=== PATIENT | female | born 2000 ===

== ENCOUNTER 2021-05-29 23:45 | Inpatient (IN) | payer MEDICAID, OTHER ==
[2021-05-30] MEDS ORDERED: TERBUTALINE 1 MG/1 ML INJ SUB-Q PRN (01:16)
[2021-05-30] MEDS ORDERED: LOPERAMIDE 2 MG CAP PO PRN (01:16)
[2021-05-30] MEDS ORDERED: METHYLERGONOVINE MALEATE 0.2 MG/ML VIAL IM PRN (01:16)
[2021-05-30] MEDS ORDERED: OXYTOCIN 10 UNIT/1 ML INJ IM PRN (01:16)
[2021-05-30] MEDS ORDERED: CARBOPROST TROMETHAMINE 250 MCG/1 ML INJ IM PRN (01:16)
[2021-05-30] MEDS ORDERED: ONDANSETRON 4 MG/2 ML INJ IV PRN (01:16)
[2021-05-30] MEDS ORDERED: miSOPROStol 200 MCG TAB PR PRN (01:16)
[2021-05-30] MEDS ORDERED: ePHEDrine SULFATE 50 MG/1 ML INJ IV PRN (01:16)
[2021-05-30] MEDS ORDERED: LIDOCAINE (2%) 20 MG/1 ML VIAL 20 ML MDV INFILTRATI ONE (01:16)
[2021-05-30] MEDS ORDERED: MINERAL OIL 30 ML ORAL LIQD PO PRN (01:16)
[2021-05-30] MEDS ORDERED: OXYTOCIN DRIP 30 UNITS/500 ML BAG IV SCH (02:00)
[2021-05-30 02:16] LABS: Hematocrit 38.1 % (30.3-42.9); Hemoglobin 12.9 gm/dl (10.1-14.3); Mean Corpuscular HGB Conc 34 % (30-34); Mean Corpuscular Volume 82 fl (79-97); Platelet Count 246 K/mm3 (140-440); Red Blood Count 4.63 M/mm3 (3.65-5.03); Red Cell Distribution Width 15.7 % (13.2-15.2)
[2021-05-30] MEDS: LACTATED RINGERS 1,000 ML IV SCH ×2 (03:22→11:30)
[2021-05-30] MEDS: OXYTOCIN DRIP 30 UNITS/500 ML BAG IV SCH (03:23)
--- NOTE | 2021-05-30 06:43 | History and Physical Report ---
History of Present Illness Date of examination: 05/30/21 Date of admission: 05/30/21 01:16 Chief complaint: rupture of membranes History of present illness: 20 yo G1 at 38w0d VIKTOR 06/13/21 with PNC at [facility] c/b hx abnormal AFP with pos DS screen 1:91 with neg CFDNA, abnormal 1hr GTT, nl 3h GTT presenting with leakage of fluid, found to have positive amnisure. Intermittent contractions. +FM. No VB. No PIH symptoms. PNC reviewed, WNL unless otherwise specified O pos H/H 39.9/13.2 Pap NILM Rubella immune, VDRL neg HIV neg SMA/fragile X /CF neg GCCT neg MSAPF pos down syndrome, CFDNA neg 1hr GTT 143, 3hr GTT passed GBS neg Past History Past Medical History: no pertinent history Past Surgical History: no surgical history Family/Genetic History: none Social history: no significant social history - Obstetrical History Expected Date of Delivery: 06/13/21 Actual Gestation: 38 Week(s) 0 Day(s) : 1 Medications and Allergies Allergies Allergy/AdvReac Type Severity Reaction Status Date / Time Penicillins Allergy Rash Verified 05/30/21 06:49 Active Meds: Active Medications Butorphanol Tartrate (Butorphanol 2 Mg/1 Ml Inj) 2 mg IV Q2H PRN PRN Reason: Pain , Severe (7-10) Carboprost Tromethamine (Carboprost Tromethamine 250 Mcg/1 Ml Inj) 250 mcg IM ONCE PRN PRN Reason: Uterine Bleeding Ephedrine Sulfate (Ephedrine Sulfate 50 Mg/1 Ml Inj) 10 mg IV Q2M PRN PRN Reason: Hypotension Oxytocin/Sodium Chloride (Pitocin/Ns 30 Unit/500ml) 30 units in 500 mls @ 2 mls/hr IV TITR JAE; Protocol Last Titration: 05/30/21 04:31 Dose: 3 ml/hr, 3 mls/hr Documented by: Lactated Ringer's (Lactated Ringers) 1,000 mls @ 125 mls/hr IV DIRECT JAE Last Admin: 05/30/21 03:22 Dose: 125 mls/hr Documented by: Oxytocin/Sodium Chloride (Pitocin/Ns 30 Unit/500ml) 30 units in 500 mls @ 40 mls/hr IV TITR JAE; Protocol Loperamide HCl (Loperamide 2 Mg Cap) 2 mg PO ONCE PRN PRN Reason: give with Hemabate Methylergonovine Maleate (Methylergonovine Maleate 0.2 Mg/Ml Vial) 0.2 mg IM ONCE PRN PRN Reason: Uterine Bleeding Mineral Oil (Mineral Oil 30 Ml Oral Liqd) 30 ml PO QHS PRN PRN Reason: Constipation Misoprostol (Misoprostol 200 Mcg Tab) 800 mcg MT ONCE PRN PRN Reason: Uterine Bleeding Ondansetron HCl (Ondansetron 4 Mg/2 Ml Inj) 4 mg IV Q8H PRN PRN Reason: Nausea And Vomiting Oxytocin (Oxytocin 10 Unit/1 Ml Inj) 10 unit IM ONCE PRN PRN Reason: Uterine Bleeding Terbutaline Sulfate (Terbutaline 1 Mg/1 Ml Inj) 0.25 mg SUB-Q ONCE PRN PRN Reason: Hyperstimulation/Hypertonicity Review of Systems All systems: negative (expect HPI) - Vital Signs Vital signs: Vital Signs Pulse BP 83 133/63 05/30/21 00:06 05/30/21 00:06 Temp Pulse Resp BP Pulse Ox 98.5 F 83 20 131/66 100 05/30/21 00:12 05/30/21 02:13 05/30/21 00:12 05/30/21 02:13 05/30/21 01:42 - Physical Exam Abdomen: Positive: normal appearance, normal bowel sounds Uterus: Positive: enlarged - Obstetrical FHR: category 1 Uterine Contraction Monitor Mode: External Cervical Dilatation: 0.5 Cervical Effacement Percentage: 30 station: -4 Uterine Contraction Pattern: Irregular Results Result Diagrams: 05/30/21 01:55 Abnormal lab results 05/30/21 05/30/21 Range/Units 00:37 01:55 WBC 11.5 H (4.5-11.0) K/mm3 RDW 15.7 H (13.2-15.2) % Membranes Rupture Positive A (Negative) All other labs normal. Assessment and Plan - Patient Problems (1) PROM (premature rupture of membranes) Current Visit: Yes Status: Acute Plan to address problem: For IOL for PROM at term --Pitocin for induction of labor --GBS neg --Epidural available, Stadol prn pain --Anticipate
--- NOTE | 2021-05-30 10:30 | Progress Note ---
Assessment and Plan A: IUP@38 wks PPROM P: Continuous monitoring Start Cervidil Pain med/Epidural prn Anticipate Subjective - Subjective Date of service: 05/30/21 Principal diagnosis: IUP@ 38wks Patient reports: loss of fluid, movement normal, contractions Objective - Vital Signs Vital Signs: Vital Signs - 12hr 05/30/21 05/30/21 05/30/21 00:06 00:07 00:12 Temperature 98.5 F Pulse Rate 83 83 83 Respiratory 20 Rate Blood Pressure 133/63 Blood Pressure 124/66 [Left] O2 Sat by Pulse 99 98 Oximetry 05/30/21 05/30/21 05/30/21 00:13 00:17 00:22 Temperature Pulse Rate 77 87 75 Respiratory Rate Blood Pressure 124/66 Blood Pressure [Left] O2 Sat by Pulse 97 98 Oximetry 05/30/21 05/30/21 05/30/21 00:27 00:32 00:37 Temperature Pulse Rate 86 86 78 Respiratory Rate Blood Pressure Blood Pressure [Left] O2 Sat by Pulse 99 100 100 Oximetry 05/30/21 05/30/21 05/30/21 00:42 00:47 00:52 Temperature Pulse Rate 81 73 79 Respiratory Rate Blood Pressure Blood Pressure [Left] O2 Sat by Pulse 99 100 99 Oximetry 05/30/21 05/30/21 05/30/21 00:57 01:02 01:07 Temperature Pulse Rate 78 82 83 Respiratory Rate Blood Pressure Blood Pressure [Left] O2 Sat by Pulse 98 99 98 Oximetry 05/30/21 05/30/21 05/30/21 01:12 01:17 01:22 Temperature Pulse Rate 87 79 87 Respiratory Rate Blood Pressure Blood Pressure [Left] O2 Sat by Pulse 99 99 100 Oximetry 05/30/21 05/30/21 05/30/21 01:27 01:32 01:37 Temperature Pulse Rate 85 86 87 Respiratory Rate Blood Pressure Blood Pressure [Left] O2 Sat by Pulse 99 100 100 Oximetry 05/30/21 05/30/21 05/30/21 01:42 02:13 06:48 Temperature Pulse Rate 93 H 83 79 Respiratory Rate Blood Pressure 131/66 100/78 Blood Pressure [Left] O2 Sat by Pulse 100 98 Oximetry 05/30/21 05/30/21 05/30/21 06:53 06:58 07:02 Temperature Pulse Rate 78 86 79 Respiratory Rate Blood Pressure Blood Pressure [Left] O2 Sat by Pulse 96 98 93 Oximetry 05/30/21 05/30/21 05/30/21 07:03 07:08 07:13 Temperature Pulse Rate 81 87 81 Respiratory Rate Blood Pressure Blood Pressure [Left] O2 Sat by Pulse 95 98 96 Oximetry 05/30/21 05/30/21 05/30/21 07:14 07:18 07:21 Temperature 98.3 F Pulse Rate 91 H 85 90 Respiratory Rate Blood Pressure Blood Pressure [Left] O2 Sat by Pulse 92 96 92 Oximetry 05/30/21 05/30/21 05/30/21 07:23 07:28 07:33 Temperature Pulse Rate 74 94 H 72 Respiratory Rate Blood Pressure Blood Pressure [Left] O2 Sat by Pulse 99 98 97 Oximetry 05/30/21 05/30/21 05/30/21 07:38 07:43 07:48 Temperature Pulse Rate 82 90 84 Respiratory Rate Blood Pressure Blood Pressure [Left] O2 Sat by Pulse 100 98 97 Oximetry 05/30/21 05/30/21 05/30/21 07:53 07:58 08:03 Temperature Pulse Rate 83 75 80 Respiratory Rate Blood Pressure Blood Pressure [Left] O2 Sat by Pulse 98 98 97 Oximetry 05/30/21 05/30/21 05/30/21 08:08 08:13 08:18 Temperature Pulse Rate 78 78 70 Respiratory Rate Blood Pressure Blood Pressure [Left] O2 Sat by Pulse 98 97 98 Oximetry 05/30/21 05/30/21 05/30/21 08:20 08:23 08:27 Temperature Pulse Rate 81 70 77 Respiratory Rate Blood Pressure Blood Pressure [Left] O2 Sat by Pulse 92 99 91 Oximetry 05/30/21 05/30/21 05/30/21 08:28 08:33 09:11 Temperature Pulse Rate 69 75 85 Respiratory Rate Blood Pressure 105/56 Blood Pressure [Left] O2 Sat by Pulse 98 99 Oximetry 05/30/21 05/30/21 09:40 10:10 Temperature Pulse Rate 68 75 Respiratory Rate Blood Pressure 98/59 113/64 Blood Pressure [Left] O2 Sat by Pulse Oximetry - Exam Breasts: normal Abdomen: Present: normal appearance, soft, normal bowel sounds, other (gravid) Vulva: both: normal Uterus: Present: normal FHR: auscultation normal, category 1 Uterine Contraction Monitor Mode: External Cervical Dilatation: 1 Cervical Effacement Percentage: 50 station: -4 Uterine Contraction Pattern: Irregular Uterine Tone Measurement Phase: Resting Uterine Contraction Intensity: Mild Extremities: normal - Labs Labs: Abnormal Labs 05/30/21 05/30/21 00:37 01:55 WBC 11.5 H RDW 15.7 H Membranes Rupture Positive A Laboratory Results - last 24 hr 05/30/21 05/30/21 05/30/21 00:37 01:55 01:55 WBC 11.5 H RBC 4.63 Hgb 12.9 Hct 38.1 MCV 82 MCH 28 MCHC 34 RDW 15.7 H Plt Count 246 Membranes Rupture Positive A Syphilis IgG Antibody Nonreactive Blood Type Antibody Screen 05/30/21 01:55 WBC RBC Hgb Hct MCV MCH MCHC RDW Plt Count Membranes Rupture Syphilis IgG Antibody Blood Type O POSITIVE Antibody Screen Negative
[2021-05-30] MEDS ORDERED: DINOPROSTONE 10 MG VAG SUPP VG SCH (11:00)
[2021-05-30] MEDS: BUTORPHANOL 2 MG/1 ML INJ IV PRN (18:16)
[2021-05-31] MEDS: BUTORPHANOL 2 MG/1 ML INJ IV PRN ×2 (03:10→07:22)
--- NOTE | 2021-05-31 08:45 | Anesthesia Consultation ---
Anesthesia Consult and Med Hx Date of service: 05/31/21 - Airway Anesthetic Teeth Evaluation: Good ROM Head & Neck: Adequate Mental/Hyoid Distance: Adequate Mallampati Class: Class II Intubation Access Assessment: Probably Good - Pulmonary Exam CTA: Yes - Cardiac Exam Cardiac Exam: RRR - Pre-Operative Health Status ASA Pre-Surgery Classification: ASA2 Proposed Anesthetic Plan: Epidural - Pulmonary Hx Asthma: No COPD: No Hx Pneumonia: No - Cardiovascular System Hx Hypertension: No - Central Nervous System Hx Seizures: No Hx Psychiatric Problems: No - Endocrine Hx Renal Disease: No Hx End Stage Renal Disease: No Hx Hypothyroidism: No Hx Hyperthyroidism: No - Hematic Hx Anemia: No Hx Sickle Cell Disease: No - Other Systems Hx Alcohol Use: No
[2021-05-31] MEDS ORDERED: NALOXONE 2 MG/2 ML INJ IV PRN (09:30)
[2021-05-31] MEDS ORDERED: ePHEDrine SULFATE 50 MG/1 ML INJ IV PRN (09:30)
[2021-05-31] MEDS: fentaNYL-BUPIV 2 MCG/ML-0.125% 200 MCG/100 ML BAG EPIDURAL SCH ×2 (10:07→17:55)
[2021-05-31] MEDS: LACTATED RINGERS 1,000 ML IV SCH (10:07)
--- NOTE | 2021-05-31 10:57 | Progress Note ---
Assessment and Plan A: IUP @ 38 1 Weeks Category I Tracing Prolonged Rupture of Membranes GBS Negative P: Continue Pitocin Augmentation IUPC Placed Continue ABX Prophylaxis Multiple Maternal Position Changes Subjective - Subjective Date of service: 05/31/21 Principal diagnosis: IUP@ 38wks Patient reports: movement normal, other (Resting/Sleeping under epidural anethesia ) Objective - Vital Signs Vital Signs: Vital Signs - 12hr 05/30/21 05/30/21 05/30/21 22:57 23:01 23:06 Temperature Pulse Rate 90 32 L 60 Respiratory Rate Blood Pressure O2 Sat by Pulse 97 85 80 L Oximetry 05/30/21 05/30/21 05/30/21 23:11 23:16 23:18 Temperature Pulse Rate 69 81 84 Respiratory Rate Blood Pressure 115/60 O2 Sat by Pulse 97 96 94 Oximetry 05/30/21 05/30/21 05/30/21 23:21 23:25 23:26 Temperature Pulse Rate 73 76 75 Respiratory Rate Blood Pressure O2 Sat by Pulse 94 94 93 Oximetry 05/30/21 05/30/21 05/30/21 23:31 23:32 23:36 Temperature Pulse Rate 74 82 Respiratory Rate Blood Pressure O2 Sat by Pulse 94 87 98 Oximetry 05/30/21 05/30/21 05/30/21 23:40 23:41 23:46 Temperature Pulse Rate 87 61 77 Respiratory Rate Blood Pressure 123/79 O2 Sat by Pulse 96 96 Oximetry 05/30/21 05/30/21 05/30/21 23:48 23:51 23:56 Temperature Pulse Rate 50 L 66 80 Respiratory Rate Blood Pressure O2 Sat by Pulse 83 L 98 99 Oximetry 05/31/21 05/31/21 05/31/21 00:01 00:06 00:11 Temperature Pulse Rate 87 107 H 99 H Respiratory Rate Blood Pressure 159/66 O2 Sat by Pulse 98 98 95 Oximetry 05/31/21 05/31/21 05/31/21 00:16 00:21 00:26 Temperature Pulse Rate 85 108 H 91 H Respiratory Rate Blood Pressure O2 Sat by Pulse 98 98 98 Oximetry 05/31/21 05/31/21 05/31/21 00:29 00:31 00:36 Temperature 98.3 F Pulse Rate 95 H 112 H Respiratory Rate Blood Pressure O2 Sat by Pulse 98 97 Oximetry 05/31/21 05/31/2105/31/21 00:41 00:46 00:53 Temperature Pulse Rate 113 H 94 H 125 H Respiratory Rate Blood Pressure 121/74 O2 Sat by Pulse 98 100 84 Oximetry 05/31/21 05/31/21 05/31/21 00:54 00:59 01:04 Temperature Pulse Rate 72 74 93 H Respiratory Rate Blood Pressure O2 Sat by Pulse 90 98 97 Oximetry 05/31/21 05/31/21 05/31/21 01:09 01:11 01:14 Temperature Pulse Rate 161 H 80 Respiratory Rate Blood Pressure 104/55 O2 Sat by Pulse 90 65 L Oximetry 05/31/21 05/31/21 05/31/21 01:20 01:26 01:28 Temperature Pulse Rate 60 91 H Respiratory Rate Blood Pressure O2 Sat by Pulse 81 L 84 97 Oximetry 05/31/21 05/31/21 05/31/21 01:33 01:38 01:41 Temperature Pulse Rate 89 90 101 H Respiratory Rate Blood Pressure 107/59 O2 Sat by Pulse 98 98 Oximetry 05/31/21 05/31/21 05/31/21 01:43 01:48 01:53 Temperature Pulse Rate 87 87 94 H Respiratory Rate Blood Pressure O2 Sat by Pulse 98 98 98 Oximetry 05/31/21 05/31/21 05/31/21 01:58 02:03 02:08 Temperature Pulse Rate 115 H 99 H 109 H Respiratory Rate Blood Pressure O2 Sat by Pulse 100 98 100 Oximetry 05/31/21 05/31/21 05/31/21 02:11 02:13 02:18 Temperature Pulse Rate 90 89 91 H Respiratory Rate Blood Pressure 111/56 O2 Sat by Pulse 99 99 Oximetry 05/31/21 05/31/21 05/31/21 02:23 02:28 02:33 Temperature Pulse Rate 89 90 83 Respiratory Rate Blood Pressure O2 Sat by Pulse 98 98 99 Oximetry 05/31/21 05/31/21 05/31/21 02:38 02:40 02:43 Temperature Pulse Rate 79 81 100 H Respiratory Rate Blood Pressure 93/53 O2 Sat by Pulse 98 85 Oximetry 05/31/21 05/31/21 05/31/21 02:45 02:50 02:55 Temperature Pulse Rate 67 161 H 73 Respiratory Rate Blood Pressure O2 Sat by Pulse 84 84 98 Oximetry 05/31/21 05/31/21 05/31/21 03:00 03:05 03:10 Temperature Pulse Rate 78 93 H 85 Respiratory Rate Blood Pressure 127/61 O2 Sat by Pulse 98 98 98 Oximetry 05/31/21 05/31/21 05/31/21 03:15 03:19 03:20 Temperature 98.8 F Pulse Rate 79 76 Respiratory Rate Blood Pressure O2 Sat by Pulse 94 98 Oximetry 05/31/21 05/31/21 05/31/21 03:25 03:30 03:35 Temperature Pulse Rate 75 79 77 Respiratory Rate Blood Pressure O2 Sat by Pulse 96 97 96 Oximetry 05/31/21 05/31/21 05/31/21 03:40 03:45 03:50 Temperature Pulse Rate 75 74 76 Respiratory Rate Blood Pressure 102/57 O2 Sat by Pulse 96 96 96 Oximetry 05/31/21 05/31/21 05/31/21 03:55 04:00 04:05 Temperature Pulse Rate 80 87 73 Respiratory Rate Blood Pressure O2 Sat by Pulse 96 97 96 Oximetry 05/31/21 05/31/21 05/31/21 04:10 04:13 04:19 Temperature Pulse Rate 81 53 L 87 Respiratory Rate Blood Pressure 115/56 O2 Sat by Pulse 96 84 84 Oximetry 05/31/21 05/31/21 05/31/21 04:24 04:29 04:34 Temperature Pulse Rate 74 82 79 Respiratory Rate Blood Pressure O2 Sat by Pulse 96 97 97 Oximetry 05/31/21 05/31/21 05/31/21 04:39 04:40 04:44 Temperature Pulse Rate 80 70 76 Respiratory Rate Blood Pressure 102/57 O2 Sat by Pulse 97 96 Oximetry 05/31/21 05/31/21 05/31/21 04:49 04:54 04:59 Temperature Pulse Rate 73 72 101 H Respiratory Rate Blood Pressure O2 Sat by Pulse 98 96 98 Oximetry 05/31/21 05/31/21 05/31/21 05:04 05:11 05:37 Temperature Pulse Rate 96 H 70 113 H Respiratory Rate Blood Pressure 110/63 O2 Sat by Pulse 97 90 Oximetry 05/31/21 05/31/21 05/31/21 05:40 05:42 05:47 Temperature Pulse Rate 72 100 H 78 Respiratory Rate Blood Pressure 102/59 O2 Sat by Pulse 99 98 Oximetry 05/31/21 05/31/21 05/31/21 05:52 05:57 06:02 Temperature Pulse Rate 78 92 H 76 Respiratory Rate Blood Pressure O2 Sat by Pulse 99 97 98 Oximetry 05/31/21 05/31/21 05/31/21 06:03 06:07 06:10 Temperature Pulse Rate 97 H 79 75 Respiratory Rate Blood Pressure 103/59 O2 Sat by Pulse 94 98 Oximetry 05/31/21 05/31/21 05/31/21 06:12 06:17 06:22 Temperature Pulse Rate 78 99 H 93 H Respiratory Rate Blood Pressure O2 Sat by Pulse 97 99 98 Oximetry 05/31/21 05/31/21 05/31/21 06:27 06:32 06:37 Temperature Pulse Rate 92 H 87 95 H Respiratory Rate Blood Pressure O2 Sat by Pulse 97 100 98 Oximetry 05/31/21 05/31/21 05/31/21 06:40 06:42 06:47 Temperature Pulse Rate 75 78 101 H Respiratory Rate Blood Pressure 100/56 O2 Sat by Pulse 99 98 Oximetry 05/31/21 05/31/21 05/31/21 06:52 06:57 07:02 Temperature Pulse Rate 129 H 121 H 105 H Respiratory Rate Blood Pressure O2 Sat by Pulse 98 100 96 Oximetry 05/31/21 05/31/21 05/31/21 07:07 07:11 07:12 Temperature Pulse Rate 108 H 70 89 Respiratory Rate Blood Pressure 119/58 O2 Sat by Pulse 99 97 Oximetry 05/31/21 05/31/21 05/31/21 07:21 07:24 07:26 Temperature Pulse Rate 85 72 74 Respiratory Rate Blood Pressure O2 Sat by Pulse 98 94 95 Oximetry 05/31/21 05/31/21 05/31/21 07:29 07:31 07:36 Temperature 98.6 F Pulse Rate 79 78 79 Respiratory Rate Blood Pressure O2 Sat by Pulse 94 95 97 Oximetry 05/31/21 05/31/21 05/31/21 07:41 07:46 07:51 Temperature Pulse Rate 82 77 82 Respiratory Rate Blood Pressure 107/56 O2 Sat by Pulse 97 96 98 Oximetry 05/31/21 05/31/21 05/31/21 07:56 08:01 08:06 Temperature Pulse Rate 96 H 100 H 82 Respiratory Rate Blood Pressure O2 Sat by Pulse 97 98 97 Oximetry 05/31/21 05/31/21 05/31/21 08:10 08:11 08:16 Temperature Pulse Rate 77 81 65 Respiratory Rate Blood Pressure 104/52 O2 Sat by Pulse 97 96 Oximetry 05/31/21 05/31/21 05/31/21 08:21 08:26 08:43 Temperature Pulse Rate 61 65 99 H Respiratory Rate Blood Pressure O2 Sat by Pulse 98 97 98 Oximetry 05/31/21 05/31/21 05/31/21 08:48 08:53 08:58 Temperature Pulse Rate 97 H 92 H 89 Respiratory Rate Blood Pressure O2 Sat by Pulse 98 98 98 Oximetry 05/31/21 05/31/21 05/31/21 09:03 09:08 09:10 Temperature Pulse Rate 81 81 78 Respiratory Rate Blood Pressure 106/56 O2 Sat by Pulse 99 100 Oximetry 05/31/21 05/31/21 05/31/21 09:13 09:18 09:25 Temperature Pulse Rate 82 85 76 Respiratory Rate Blood Pressure O2 Sat by Pulse 97 99 93 Oximetry 05/31/21 05/31/21 05/31/21 09:30 09:33 09:34 Temperature Pulse Rate 93 H 88 71 Respiratory Rate Blood Pressure 144/76 118/68 128/85 O2 Sat by Pulse 100 Oximetry 05/31/21 05/31/21 05/31/21 09:35 09:38 09:40 Temperature Pulse Rate 99 H 89 88 Respiratory Rate Blood Pressure 123/71 O2 Sat by Pulse 99 99 Oximetry 05/31/21 05/31/21 05/31/21 09:42 09:44 09:45 Temperature Pulse Rate 75 72 92 H Respiratory Rate Blood Pressure 102/56 103/63 O2 Sat by Pulse 96 Oximetry 05/31/21 05/31/21 05/31/21 09:50 09:53 09:54 Temperature Pulse Rate 97 H 73 80 Respiratory Rate Blood Pressure 54/27 89/46 80/42 O2 Sat by Pulse 98 Oximetry 05/31/21 05/31/21 05/31/21 09:55 09:56 09:57 Temperature Pulse Rate 96 H 92 H 105 H Respiratory Rate Blood Pressure 86/45 84/39 O2 Sat by Pulse 97 Oximetry 05/31/21 05/31/21 05/31/21 09:58 09:59 10:00 Temperature Pulse Rate 111 H 106 H 104 H Respiratory Rate Blood Pressure 72/33 73/35 O2 Sat by Pulse 97 Oximetry 05/31/21 05/31/21 05/31/21 10:04 10:05 10:10 Temperature Pulse Rate 93 H 109 H 80 Respiratory Rate Blood Pressure 101/57 109/57 O2 Sat by Pulse 97 98 Oximetry 05/31/21 05/31/21 05/31/21 10:14 10:15 10:16 Temperature 98.1 F Pulse Rate 87 87 Respiratory 18 Rate Blood Pressure 108/59 O2 Sat by Pulse 99 Oximetry 05/31/21 05/31/21 05/31/21 10:20 10:25 10:30 Temperature Pulse Rate 92 H 116 H 95 H Respiratory Rate Blood Pressure O2 Sat by Pulse 98 99 98 Oximetry 05/31/21 05/31/21 05/31/21 10:35 10:40 10:45 Temperature Pulse Rate 79 91 H 107 H Respiratory Rate Blood Pressure O2 Sat by Pulse 98 98 97 Oximetry 05/31/21 05/31/21 05/31/21 10:46 10:50 10:51 Temperature Pulse Rate 106 H 106 H 110 H Respiratory Rate Blood Pressure 72/34 72/40 O2 Sat by Pulse 99 Oximetry 05/31/21 10:52 Temperature Pulse Rate 82 Respiratory Rate Blood Pressure 103/56 O2 Sat by Pulse Oximetry - Exam Breasts: normal Cardiovascular: Regular rate Lungs: Normal air movement Abdomen: Present: normal appearance, soft Uterus: Present: normal, firm, fundal height above umbilicus FHR: category 1 Uterine Contraction Monitor Mode: Internal Cervical Dilatation: 4 (leaking a small amount of bloody fluid) Cervical Effacement Percentage: 90 station: -2 Uterine Contraction Pattern: Regular Uterine Tone Measurement Phase: Resting Uterine Contraction Intensity: Moderate Extremities: normal - Labs Labs: Abnormal Labs 05/30/21 05/30/21 00:37 01:55 WBC 11.5 H RDW 15.7 H Membranes Rupture Positive A Laboratory Results - last 24 hr 05/30/21 Unknown Coronavirus (PCR) Negative
[2021-05-31] MEDS: OXYTOCIN DRIP 30 UNITS/500 ML BAG IV SCH ×4 (11:32→13:59)
--- NOTE | 2021-05-31 12:38 | Progress Note ---
Labor Epidural - Labor Epidural Start Time: 09:33 Stop Time: 09:39 Performed by:: EULALIA LEON Procedure: Patient is requesting epidural for labor pain. H&P, and labs reviewed. Procedure explained, questions answered, consent obtained. Patient in sitting position with blood pressure cuff and pulse ox on and working. Timeout performed immediately before start of procedure. Sterile chlorahexadine 0.5% prep/drape. 3 mL 1% lidocaine skin wheal at L[3]-L[4]. 18-gauge [employer] Holding[employer] epidural needle advanced to [id number] with saline at [7] cm. 27-gauge spinal needle advanced until clear, free-flowing CSF. Intrathecal dexmedetomidine [5] mcg administered and needle removed. Epidural catheter advanced to [12] cm, negative aspiration for blood and csf, negative test dose 3 ml 1.5% lidocaine with epinephrine. Sterile steri-strips and tegaderm applied, followed by tape reinforcement. Patient tolerated procedure well.
--- NOTE | 2021-05-31 17:21 | Progress Note ---
Assessment and Plan A: IUP @ 38 1/ Weeks Category I Tracing Prolonged Rupture of Membranes Protracted Labor GBS Negative P: Continue Pitocin Augmentation Continue ABX Prophylaxis Multiple Maternal Position Changes Consulted Dr. Vazquez: Agrees with current plan of care Subjective - Subjective Date of service: 05/31/21 Principal diagnosis: IUP@ 38wks Patient reports: movement normal, other (Resting/Sleeping under epidural anethesia ) Objective - Vital Signs Vital Signs: Vital Signs - 12hr 05/31/21 05/31/21 05/31/21 05:37 05:40 05:42 Temperature Pulse Rate 113 H 72 100 H Respiratory Rate Blood Pressure 102/59 O2 Sat by Pulse 90 99 Oximetry 05/31/21 05/31/21 05/31/21 05:47 05:52 05:57 Temperature Pulse Rate 78 78 92 H Respiratory Rate Blood Pressure O2 Sat by Pulse 98 99 97 Oximetry 05/31/21 05/31/21 05/31/21 06:02 06:03 06:07 Temperature Pulse Rate 76 97 H 79 Respiratory Rate Blood Pressure O2 Sat by Pulse 98 94 98 Oximetry 05/31/21 05/31/21 05/31/21 06:10 06:12 06:17 Temperature Pulse Rate 75 78 99 H Respiratory Rate Blood Pressure 103/59 O2 Sat by Pulse 97 99 Oximetry 05/31/21 05/31/21 05/31/21 06:22 06:27 06:32 Temperature Pulse Rate 93 H 92 H 87 Respiratory Rate Blood Pressure O2 Sat by Pulse 98 97 100 Oximetry 05/31/21 05/31/21 05/31/21 06:37 06:40 06:42 Temperature Pulse Rate 95 H 75 78 Respiratory Rate Blood Pressure 100/56 O2 Sat by Pulse 98 99 Oximetry 05/31/21 05/31/21 05/31/21 06:47 06:52 06:57 Temperature Pulse Rate 101 H 129 H 121 H Respiratory Rate Blood Pressure O2 Sat by Pulse 98 98 100 Oximetry 05/31/21 05/31/21 05/31/21 07:02 07:07 07:11 Temperature Pulse Rate 105 H 108 H 70 Respiratory Rate Blood Pressure 119/58 O2 Sat by Pulse 96 99 Oximetry 05/31/21 05/31/21 05/31/21 07:12 07:21 07:24 Temperature Pulse Rate 89 85 72 Respiratory Rate Blood Pressure O2 Sat by Pulse 97 98 94 Oximetry 05/31/21 05/31/21 05/31/21 07:26 07:29 07:31 Temperature 98.6 F Pulse Rate 74 79 78 Respiratory Rate Blood Pressure O2 Sat by Pulse 95 94 95 Oximetry 05/31/21 05/31/21 05/31/21 07:36 07:41 07:46 Temperature Pulse Rate 79 82 77 Respiratory Rate Blood Pressure 107/56 O2 Sat by Pulse 97 97 96 Oximetry 05/31/21 05/31/21 05/31/21 07:51 07:56 08:01 Temperature Pulse Rate 82 96 H 100 H Respiratory Rate Blood Pressure O2 Sat by Pulse 98 97 98 Oximetry 05/31/21 05/31/21 05/31/21 08:06 08:10 08:11 Temperature Pulse Rate 82 77 81 Respiratory Rate Blood Pressure 104/52 O2 Sat by Pulse 97 97 Oximetry 05/31/21 05/31/21 05/31/21 08:16 08:21 08:26 Temperature Pulse Rate 65 61 65 Respiratory Rate Blood Pressure O2 Sat by Pulse 96 98 97 Oximetry 05/31/21 05/31/21 05/31/21 08:43 08:48 08:53 Temperature Pulse Rate 99 H 97 H 92 H Respiratory Rate Blood Pressure O2 Sat by Pulse 98 98 98 Oximetry 05/31/21 05/31/21 05/31/21 08:58 09:03 09:08 Temperature Pulse Rate 89 81 81 Respiratory Rate Blood Pressure O2 Sat by Pulse 98 99 100 Oximetry 05/31/21 05/31/21 05/31/21 09:10 09:13 09:18 Temperature Pulse Rate 78 82 85 Respiratory Rate Blood Pressure 106/56 O2 Sat by Pulse 97 99 Oximetry 05/31/21 05/31/21 05/31/21 09:25 09:30 09:33 Temperature Pulse Rate 76 93 H 88 Respiratory Rate Blood Pressure 144/76 118/68 O2 Sat by Pulse 93 100 Oximetry 05/31/21 05/31/21 05/31/21 09:34 09:35 09:38 Temperature Pulse Rate 71 99 H 89 Respiratory Rate Blood Pressure 128/85 123/71 O2 Sat by Pulse 99 Oximetry 05/31/21 05/31/21 05/31/21 09:40 09:42 09:44 Temperature Pulse Rate 88 75 72 Respiratory Rate Blood Pressure 102/56 103/63 O2 Sat by Pulse 99 Oximetry 05/31/21 05/31/21 05/31/21 09:45 09:50 09:53 Temperature Pulse Rate 92 H 97 H 73 Respiratory Rate Blood Pressure 54/27 89/46 O2 Sat by Pulse 96 98 Oximetry 05/31/21 05/31/21 05/31/21 09:54 09:55 09:56 Temperature Pulse Rate 80 96 H 92 H Respiratory Rate Blood Pressure 80/42 86/45 O2 Sat by Pulse 97 Oximetry 05/31/21 05/31/21 05/31/21 09:57 09:58 09:59 Temperature Pulse Rate 105 H 111 H 106 H Respiratory Rate Blood Pressure 84/39 72/33 73/35 O2 Sat by Pulse Oximetry 05/31/21 05/31/21 05/31/21 10:00 10:04 10:05 Temperature Pulse Rate 104 H 93 H 109 H Respiratory Rate Blood Pressure 101/57 O2 Sat by Pulse 97 97 Oximetry 05/31/21 05/31/21 05/31/21 10:10 10:14 10:15 Temperature 98.1 F Pulse Rate 80 87 Respiratory 18 Rate Blood Pressure 109/57 O2 Sat by Pulse 98 99 Oximetry 05/31/21 05/31/21 05/31/21 10:16 10:20 10:25 Temperature Pulse Rate 87 92 H 116 H Respiratory Rate Blood Pressure 108/59 O2 Sat by Pulse 98 99 Oximetry 05/31/21 05/31/21 05/31/21 10:30 10:35 10:40 Temperature Pulse Rate 95 H 79 91 H Respiratory Rate Blood Pressure O2 Sat by Pulse 98 98 98 Oximetry 05/31/21 05/31/21 05/31/21 10:45 10:46 10:50 Temperature Pulse Rate 107 H 106 H 106 H Respiratory Rate Blood Pressure 72/34 O2 Sat by Pulse 97 99 Oximetry 05/31/21 05/31/21 05/31/21 10:51 10:52 10:55 Temperature Pulse Rate 110 H 82 96 H Respiratory Rate Blood Pressure 72/40 103/56 O2 Sat by Pulse 97 Oximetry 05/31/21 05/31/21 05/31/21 11:00 11:05 11:10 Temperature Pulse Rate 95 H 100 H 108 H Respiratory Rate Blood Pressure O2 Sat by Pulse 98 97 97 Oximetry 05/31/21 05/31/2105/31/21 11:15 11:16 11:20 Temperature Pulse Rate 88 86 101 H Respiratory Rate Blood Pressure 102/58 O2 Sat by Pulse 96 97 Oximetry 05/31/21 05/31/21 05/31/21 11:25 11:30 11:35 Temperature Pulse Rate 101 H 88 110 H Respiratory Rate Blood Pressure O2 Sat by Pulse 97 97 96 Oximetry 05/31/21 05/31/21 05/31/21 11:40 11:45 11:46 Temperature Pulse Rate 103 H 118 H 88 Respiratory Rate Blood Pressure 113/66 O2 Sat by Pulse 98 98 Oximetry 05/31/21 05/31/21 05/31/21 11:50 11:55 12:00 Temperature Pulse Rate 131 H 84 94 H Respiratory Rate Blood Pressure O2 Sat by Pulse 98 98 97 Oximetry 05/31/21 05/31/21 05/31/21 12:05 12:10 12:15 Temperature Pulse Rate 93 H 99 H 97 H Respiratory Rate Blood Pressure O2 Sat by Pulse 98 97 98 Oximetry 05/31/21 05/31/21 05/31/21 12:16 12:20 12:25 Temperature Pulse Rate 105 H 110 H 102 H Respiratory Rate Blood Pressure 100/56 O2 Sat by Pulse 99 98 Oximetry 05/31/21 05/31/21 05/31/21 12:30 12:35 12:40 Temperature Pulse Rate 99 H 93 H 99 H Respiratory Rate Blood Pressure O2 Sat by Pulse 99 98 100 Oximetry 05/31/21 05/31/21 05/31/21 12:45 12:47 12:50 Temperature Pulse Rate 94 H 114 H 90 Respiratory Rate Blood Pressure 85/44 O2 Sat by Pulse 99 98 Oximetry 05/31/21 05/31/21 05/31/21 12:55 13:00 13:04 Temperature Pulse Rate 97 H 111 H 121 H Respiratory Rate Blood Pressure 81/43 93/54 O2 Sat by Pulse 99 99 Oximetry 05/31/21 05/31/21 05/31/21 13:05 13:10 13:15 Temperature Pulse Rate 89 94 H 126 H Respiratory Rate Blood Pressure 96/54 O2 Sat by Pulse 100 100 100 Oximetry 05/31/21 05/31/21 05/31/21 13:20 13:25 13:30 Temperature Pulse Rate 102 H 101 H 103 H Respiratory Rate Blood Pressure O2 Sat by Pulse 100 100 100 Oximetry 05/31/21 05/31/21 05/31/21 13:35 13:40 13:45 Temperature Pulse Rate 112 H 100 H 125 H Respiratory Rate Blood Pressure O2 Sat by Pulse 100 100 100 Oximetry 05/31/21 05/31/21 05/31/21 13:47 13:50 13:55 Temperature Pulse Rate 108 H 139 H 133 H Respiratory Rate Blood Pressure 104/59 O2 Sat by Pulse 100 99 Oximetry 05/31/21 05/31/21 05/31/21 14:00 14:05 14:10 Temperature Pulse Rate 129 H 106 H 90 Respiratory Rate Blood Pressure O2 Sat by Pulse 95 97 99 Oximetry 05/31/21 05/31/21 05/31/21 14:15 14:16 14:20 Temperature Pulse Rate 96 H 104 H 111 H Respiratory Rate Blood Pressure 116/66 O2 Sat by Pulse 98 99 Oximetry 05/31/21 05/31/21 05/31/21 14:25 14:30 14:35 Temperature Pulse Rate 102 H 112 H 110 H Respiratory Rate Blood Pressure O2 Sat by Pulse 98 98 98 Oximetry 05/31/21 05/31/21 05/31/21 14:40 14:45 14:48 Temperature Pulse Rate 91 H 141 H 98 H Respiratory Rate Blood Pressure 102/59 O2 Sat by Pulse 97 88 Oximetry 05/31/21 05/31/21 05/31/21 14:50 14:55 15:00 Temperature Pulse Rate 112 H 89 131 H Respiratory Rate Blood Pressure O2 Sat by Pulse 99 97 97 Oximetry 05/31/21 05/31/21 05/31/21 15:05 15:10 15:15 Temperature 98.5 F Pulse Rate 122 H 121 H 124 H Respiratory Rate Blood Pressure O2 Sat by Pulse 99 100 99 Oximetry 05/31/21 05/31/21 05/31/21 15:16 15:18 15:20 Temperature Pulse Rate 127 H 57 L 76 Respiratory Rate Blood Pressure 119/63 O2 Sat by Pulse 87 77 L Oximetry 05/31/21 05/31/21 05/31/21 15:25 15:30 15:32 Temperature Pulse Rate 108 H 115 H 107 H Respiratory Rate Blood Pressure O2 Sat by Pulse 99 97 93 Oximetry 05/31/21 05/31/21 05/31/21 15:35 15:40 15:45 Temperature Pulse Rate 117 H 121 H 115 H Respiratory Rate Blood Pressure O2 Sat by Pulse 84 96 98 Oximetry 05/31/21 05/31/21 05/31/21 15:46 15:49 15:50 Temperature Pulse Rate 90 64 115 H Respiratory Rate Blood Pressure 114/61 O2 Sat by Pulse 91 93 Oximetry 05/31/21 05/31/21 05/31/21 15:55 16:00 16:06 Temperature Pulse Rate 110 H 113 H 104 H Respiratory Rate Blood Pressure O2 Sat by Pulse 99 100 99 Oximetry 05/31/21 05/31/21 05/31/21 16:07 16:11 16:16 Temperature Pulse Rate 115 H 109 H 106 H Respiratory Rate Blood Pressure 117/66 O2 Sat by Pulse 88 97 100 Oximetry 05/31/21 05/31/21 05/31/21 16:21 16:26 16:31 Temperature Pulse Rate 114 H 115 H 97 H Respiratory Rate Blood Pressure O2 Sat by Pulse 100 100 100 Oximetry 05/31/21 05/31/21 05/31/21 16:36 16:41 16:43 Temperature Pulse Rate 109 H 113 H 102 H Respiratory Rate Blood Pressure O2 Sat by Pulse 100 99 85 Oximetry 05/31/21 05/31/21 05/31/21 16:46 16:47 16:51 Temperature Pulse Rate 89 88 95 H Respiratory Rate Blood Pressure 115/63 O2 Sat by Pulse 100 100 Oximetry 05/31/21 05/31/21 05/31/21 16:56 17:01 17:04 Temperature Pulse Rate 91 H 104 H 110 H Respiratory Rate Blood Pressure O2 Sat by Pulse 100 100 89 Oximetry 05/31/21 05/31/21 05/31/21 17:06 17:11 17:16 Temperature Pulse Rate 102 H 93 H 86 Respiratory Rate Blood Pressure 113/60 O2 Sat by Pulse 100 99 Oximetry - Exam Breasts: normal Cardiovascular: Regular rate Lungs: Normal air movement Abdomen: Present: normal appearance, soft Uterus: Present: normal, firm, fundal height above umbilicus FHR: category 1 Uterine Contraction Monitor Mode: Internal Cervical Dilatation: 5 (leaking a small amount of clear fluid) Cervical Effacement Percentage: 90 station: -1 Uterine Contraction Frequency (min): 2-3 Uterine Contraction Pattern: Regular Uterine Tone Measurement Phase: Resting Uterine Contraction Intensity: Moderate Extremities: normal - Labs Labs: Abnormal Labs 05/30/21 05/30/21 00:37 01:55 WBC 11.5 H RDW 15.7 H Membranes Rupture Positive A
--- NOTE | 2021-06-01 00:28 | Progress Note ---
Assessment and Plan A: IUP @ 38 1/7 Weeks Category I Tracing Prolonged Rupture of Membranes Protracted Descent GBS Negative P: Continue Pitocin Augmentation Continue ABX Prophylaxis Multiple Maternal Position Changes ISE Placed Allow Patient to Labor Down Consulted Dr. Vazquez Subjective - Subjective Principal diagnosis: IUP@ 38wks Patient reports: movement normal, contractions Objective - Vital Signs Vital Signs: Vital Signs - 12hr 05/31/21 05/31/21 05/31/21 12:25 12:30 12:35 Temperature Pulse Rate 102 H 99 H 93 H Respiratory Rate Blood Pressure Blood Pressure [Left] O2 Sat by Pulse 98 99 98 Oximetry 05/31/21 05/31/21 05/31/21 12:40 12:45 12:47 Temperature Pulse Rate 99 H 94 H 114 H Respiratory Rate Blood Pressure 85/44 Blood Pressure [Left] O2 Sat by Pulse 100 99 Oximetry 05/31/21 05/31/21 05/31/21 12:50 12:55 13:00 Temperature Pulse Rate 90 97 H 111 H Respiratory Rate Blood Pressure 81/43 Blood Pressure [Left] O2 Sat by Pulse 98 99 99 Oximetry 05/31/21 05/31/21 05/31/21 13:04 13:05 13:10 Temperature Pulse Rate 121 H 89 94 H Respiratory Rate Blood Pressure 93/54 Blood Pressure [Left] O2 Sat by Pulse 100 100 Oximetry 05/31/21 05/31/21 05/31/21 13:15 13:20 13:25 Temperature Pulse Rate 126 H 102 H 101 H Respiratory Rate Blood Pressure 96/54 Blood Pressure [Left] O2 Sat by Pulse 100 100 100 Oximetry 05/31/21 05/31/21 05/31/21 13:30 13:35 13:40 Temperature Pulse Rate 103 H 112 H 100 H Respiratory Rate Blood Pressure Blood Pressure [Left] O2 Sat by Pulse 100 100 100 Oximetry 05/31/21 05/31/21 05/31/21 13:45 13:47 13:50 Temperature Pulse Rate 125 H 108 H 139 H Respiratory Rate Blood Pressure 104/59 Blood Pressure [Left] O2 Sat by Pulse 100 100 Oximetry 05/31/21 05/31/21 05/31/21 13:55 14:00 14:05 Temperature Pulse Rate 133 H 129 H 106 H Respiratory Rate Blood Pressure Blood Pressure [Left] O2 Sat by Pulse 99 95 97 Oximetry 05/31/21 05/31/21 05/31/21 14:10 14:15 14:16 Temperature Pulse Rate 90 96 H 104 H Respiratory Rate Blood Pressure 116/66 Blood Pressure [Left] O2 Sat by Pulse 99 98 Oximetry 05/31/21 05/31/21 05/31/21 14:20 14:25 14:30 Temperature Pulse Rate 111 H 102 H 112 H Respiratory Rate Blood Pressure Blood Pressure [Left] O2 Sat by Pulse 99 98 98 Oximetry 05/31/21 05/31/21 05/31/21 14:35 14:40 14:45 Temperature Pulse Rate 110 H 91 H 141 H Respiratory Rate Blood Pressure Blood Pressure [Left] O2 Sat by Pulse 98 97 88 Oximetry 05/31/21 05/31/21 05/31/21 14:48 14:50 14:55 Temperature Pulse Rate 98 H 112 H 89 Respiratory Rate Blood Pressure 102/59 Blood Pressure [Left] O2 Sat by Pulse 99 97 Oximetry 05/31/21 05/31/21 05/31/21 15:00 15:05 15:10 Temperature 98.5 F Pulse Rate 131 H 122 H 121 H Respiratory Rate Blood Pressure Blood Pressure [Left] O2 Sat by Pulse 97 99 100 Oximetry 05/31/21 05/31/21 05/31/21 15:15 15:16 15:18 Temperature Pulse Rate 124 H 127 H 57 L Respiratory Rate Blood Pressure 119/63 Blood Pressure [Left] O2 Sat by Pulse 99 87 Oximetry 05/31/21 05/31/21 05/31/21 15:20 15:25 15:30 Temperature Pulse Rate 76 108 H 115 H Respiratory Rate Blood Pressure Blood Pressure [Left] O2 Sat by Pulse 77 L 99 97 Oximetry 05/31/21 05/31/21 05/31/21 15:32 15:35 15:40 Temperature Pulse Rate 107 H 117 H 121 H Respiratory Rate Blood Pressure Blood Pressure [Left] O2 Sat by Pulse 93 84 96 Oximetry 05/31/21 05/31/21 05/31/21 15:45 15:46 15:49 Temperature Pulse Rate 115 H 90 64 Respiratory Rate Blood Pressure 114/61 Blood Pressure [Left] O2 Sat by Pulse 98 91 Oximetry 05/31/21 05/31/21 05/31/21 15:50 15:55 16:00 Temperature Pulse Rate 115 H 110 H 113 H Respiratory Rate Blood Pressure Blood Pressure [Left] O2 Sat by Pulse 93 99 100 Oximetry 05/31/21 05/31/21 05/31/21 16:06 16:07 16:11 Temperature Pulse Rate 104 H 115 H 109 H Respiratory Rate Blood Pressure Blood Pressure [Left] O2 Sat by Pulse 99 88 97 Oximetry 05/31/21 05/31/21 05/31/21 16:16 16:21 16:26 Temperature Pulse Rate 106 H 114 H 115 H Respiratory Rate Blood Pressure 117/66 Blood Pressure [Left] O2 Sat by Pulse 100 100 100 Oximetry 05/31/21 05/31/21 05/31/21 16:31 16:36 16:41 Temperature Pulse Rate 97 H 109 H 113 H Respiratory Rate Blood Pressure Blood Pressure [Left] O2 Sat by Pulse 100 100 99 Oximetry 05/31/21 05/31/21 05/31/21 16:43 16:46 16:47 Temperature Pulse Rate 102 H 89 88 Respiratory Rate Blood Pressure 115/63 Blood Pressure [Left] O2 Sat by Pulse 85 100 Oximetry 05/31/21 05/31/21 05/31/21 16:51 16:56 17:01 Temperature Pulse Rate 95 H 91 H 104 H Respiratory Rate Blood Pressure Blood Pressure [Left] O2 Sat by Pulse 100 100 100 Oximetry 05/31/21 05/31/21 05/31/21 17:04 17:06 17:11 Temperature Pulse Rate 110 H 102 H 93 H Respiratory Rate Blood Pressure Blood Pressure [Left] O2 Sat by Pulse 89 100 99 Oximetry 05/31/21 05/31/21 05/31/21 17:16 17:21 17:26 Temperature Pulse Rate 87 88 95 H Respiratory Rate Blood Pressure 113/60 Blood Pressure [Left] O2 Sat by Pulse 99 99 99 Oximetry 05/31/21 05/31/21 05/31/21 17:31 17:36 17:41 Temperature Pulse Rate 96 H 119 H 108 H Respiratory Rate Blood Pressure Blood Pressure [Left] O2 Sat by Pulse 99 99 99 Oximetry 05/31/21 05/31/21 05/31/21 17:43 17:46 17:51 Temperature 98.5 F Pulse Rate 100 H 94 H Respiratory Rate Blood Pressure 114/66 Blood Pressure [Left] O2 Sat by Pulse 98 99 Oximetry 06/30/21 06/30/21 06/30/21 17:56 18:01 18:06 Temperature Pulse Rate 105 H 99 H 96 H Respiratory Rate Blood Pressure Blood Pressure [Left] O2 Sat by Pulse 99 99 98 Oximetry 05/31/21 05/31/21 05/31/21 18:11 18:16 18:17 Temperature Pulse Rate 89 94 H 93 H Respiratory Rate Blood Pressure 115/64 Blood Pressure [Left] O2 Sat by Pulse 98 99 Oximetry 05/31/21 05/31/21 05/31/21 18:21 18:26 18:31 Temperature Pulse Rate 94 H 96 H 95 H Respiratory Rate Blood Pressure Blood Pressure [Left] O2 Sat by Pulse 99 99 99 Oximetry 05/31/21 05/31/21 05/31/21 18:36 18:41 18:46 Temperature Pulse Rate 90 88 113 H Respiratory Rate Blood Pressure 119/69 Blood Pressure [Left] O2 Sat by Pulse 99 99 98 Oximetry 05/31/21 05/31/21 05/31/21 18:51 18:56 19:01 Temperature Pulse Rate 90 103 H 106 H Respiratory Rate Blood Pressure Blood Pressure [Left] O2 Sat by Pulse 99 94 99 Oximetry 05/31/21 05/31/21 05/31/21 19:06 19:07 19:11 Temperature 98.8 F Pulse Rate 103 H 109 H 99 H Respiratory 12 Rate Blood Pressure Blood Pressure 111/58 [Left] O2 Sat by Pulse 100 98 98 Oximetry 05/31/21 05/31/21 05/31/21 19:13 19:15 19:16 Temperature Pulse Rate 89 95 H 101 H Respiratory Rate Blood Pressure 111/58 113/58 Blood Pressure [Left] O2 Sat by Pulse 98 Oximetry 05/31/21 05/31/21 05/31/21 19:21 19:26 19:31 Temperature Pulse Rate 104 H 91 H 86 Respiratory Rate Blood Pressure Blood Pressure [Left] O2 Sat by Pulse 99 98 98 Oximetry 05/31/21 05/31/21 05/31/21 19:36 19:41 19:46 Temperature Pulse Rate 107 H 94 H 93 H Respiratory Rate Blood Pressure Blood Pressure [Left] O2 Sat by Pulse 97 98 97 Oximetry 05/31/21 05/31/21 05/31/21 19:51 19:56 20:01 Temperature Pulse Rate 94 H 89 89 Respiratory Rate Blood Pressure Blood Pressure [Left] O2 Sat by Pulse 98 98 97 Oximetry 05/31/21 05/31/21 05/31/21 20:06 20:11 20:16 Temperature Pulse Rate 89 92 H 95 H Respiratory Rate Blood Pressure Blood Pressure [Left] O2 Sat by Pulse 97 97 98 Oximetry 05/31/21 05/31/21 05/31/21 20:21 20:26 20:31 Temperature Pulse Rate 92 H 115 H 94 H Respiratory Rate Blood Pressure Blood Pressure [Left] O2 Sat by Pulse 97 94 99 Oximetry 05/31/21 05/31/21 05/31/21 20:36 20:41 20:46 Temperature Pulse Rate 90 93 H 91 H Respiratory Rate Blood Pressure Blood Pressure [Left] O2 Sat by Pulse 99 99 98 Oximetry 05/31/21 05/31/21 05/31/21 20:51 20:56 21:01 Temperature Pulse Rate 96 H 92 H 89 Respiratory Rate Blood Pressure Blood Pressure [Left] O2 Sat by Pulse 99 99 98 Oximetry 05/31/21 05/31/21 05/31/21 21:06 21:11 21:16 Temperature Pulse Rate 90 88 93 H Respiratory Rate Blood Pressure Blood Pressure [Left] O2 Sat by Pulse 99 99 99 Oximetry 05/31/21 05/31/21 05/31/21 21:21 21:26 21:29 Temperature Pulse Rate 88 105 H 93 H Respiratory Rate Blood Pressure Blood Pressure [Left] O2 Sat by Pulse 99 99 94 Oximetry 05/31/21 05/31/21 05/31/21 21:31 21:36 21:41 Temperature Pulse Rate 89 113 H 95 H Respiratory Rate Blood Pressure Blood Pressure [Left] O2 Sat by Pulse 98 92 87 Oximetry 05/31/21 05/31/21 05/31/21 21:46 21:49 21:51 Temperature Pulse Rate 97 H 91 H 104 H Respiratory Rate Blood Pressure Blood Pressure [Left] O2 Sat by Pulse 98 86 100 Oximetry 05/31/21 05/31/21 05/31/21 21:56 21:57 22:01 Temperature Pulse Rate 103 H 104 H 51 L Respiratory Rate Blood Pressure Blood Pressure [Left] O2 Sat by Pulse 94 88 87 Oximetry 05/31/21 05/31/21 05/31/21 22:06 22:11 22:16 Temperature Pulse Rate 98 H 97 H 105 H Respiratory Rate Blood Pressure Blood Pressure [Left] O2 Sat by Pulse 100 98 98 Oximetry 05/31/21 05/31/21 05/31/21 22:17 22:21 22:24 Temperature Pulse Rate 104 H 101 H 108 H Respiratory Rate Blood Pressure Blood Pressure [Left] O2 Sat by Pulse 89 100 92 Oximetry 05/31/21 05/31/21 05/31/21 22:26 22:31 22:36 Temperature Pulse Rate 109 H 99 H 96 H Respiratory Rate Blood Pressure Blood Pressure [Left] O2 Sat by Pulse 95 100 100 Oximetry 05/31/21 05/31/21 05/31/21 22:41 22:46 22:51 Temperature Pulse Rate 94 H 88 89 Respiratory Rate Blood Pressure Blood Pressure [Left] O2 Sat by Pulse 100 99 100 Oximetry 05/31/21 05/31/21 05/31/21 22:52 22:56 23:01 Temperature Pulse Rate 54 L 91 H 93 H Respiratory Rate Blood Pressure Blood Pressure [Left] O2 Sat by Pulse 91 100 99 Oximetry 05/31/21 05/31/21 05/31/21 23:06 23:11 23:16 Temperature Pulse Rate 110 H 109 H 133 H Respiratory Rate Blood Pressure Blood Pressure [Left] O2 Sat by Pulse 100 99 97 Oximetry 05/31/21 05/31/21 05/31/21 23:18 23:21 23:26 Temperature Pulse Rate 118 H 105 H 117 H Respiratory Rate Blood Pressure Blood Pressure [Left] O2 Sat by Pulse 94 99 100 Oximetry 05/31/21 05/31/21 05/31/21 23:29 23:34 23:40 Temperature Pulse Rate Respiratory Rate Blood Pressure Blood Pressure [Left] O2 Sat by Pulse 78 L 81 L 79 L Oximetry 05/31/21 05/31/21 05/31/21 23:45 23:47 23:50 Temperature Pulse Rate 57 L 56 L Respiratory Rate Blood Pressure Blood Pressure [Left] O2 Sat by Pulse 91 88 99 Oximetry 05/31/21 05/31/21 06/01/21 23:53 23:56 00:00 Temperature Pulse Rate 55 L 57 L Respiratory Rate Blood Pressure Blood Pressure [Left] O2 Sat by Pulse 89 93 81 L Oximetry 06/01/21 06/01/21 06/01/21 00:03 00:05 00:10 Temperature Pulse Rate 113 H 87 Respiratory Rate Blood Pressure Blood Pressure [Left] O2 Sat by Pulse 81 L 82 L 83 L Oximetry 06/01/21 06/01/21 06/01/21 00:12 00:16 00:19 Temperature 100 F H Pulse Rate 96 H Respiratory Rate Blood Pressure Blood Pressure [Left] O2 Sat by Pulse 65 L 82 L Oximetry - Exam Breasts: normal Cardiovascular: Regular rate Lungs: Normal air movement Abdomen: Present: normal appearance, soft Uterus: Present: normal, firm, fundal height above umbilicus FHR: category 1 Uterine Contraction Monitor Mode: Internal Cervical Dilatation: 10 Cervical Effacement Percentage: 100 station: +1 Uterine Contraction Pattern: Regular Uterine Tone Measurement Phase: Resting Uterine Contraction Intensity: Moderate Extremities: normal - Labs Labs: Abnormal Labs 05/30/21 05/30/21 00:37 01:55 WBC 11.5 H RDW 15.7 H Membranes Rupture Positive A
[2021-06-01] MEDS ORDERED: diphenhydrAMINE 25 MG CAP PO PRN (02:01)
[2021-06-01] MEDS ORDERED: LANOLIN/ZINC/DIMETHICONE (LANSINOH) 7 GM TP PRN (02:01)
[2021-06-01] MEDS ORDERED: WITCH HAZEL/ GLYCERIN PAD TP PRN (02:01)
[2021-06-01] MEDS ORDERED: HYDROcodone/ACETAMINOPHEN 5-325 MG TAB PO PRN (02:01)
--- NOTE | 2021-06-01 02:13 | Procedure Note ---
OB Delivery Note - Delivery Date of Delivery: 06/01/21 (0135) Surgeon: CORINNE FOWLER Estimated blood loss: other (275) - Vaginal Delivery presentation: vertex Delivery position: OA Intrapartum events: PROM->1hr before delivery, prolonged active phase, prolonged 2nd stage>2.5hr Delivery induction: oxytocin Delivery augmentation: pitocin Delivery monitor: internal FHT, internal uterine Route of delivery: Delivery placenta: spontaneous Delivery cord: 3 umbilical vessels Episiotomy: none Delivery laceration: none Anesthesia: epidural Delivery comments: of a live 6'4 male infant over a intact perineum under epidural anesthesia with Apgars of 2 and 7 at 0135 on 06/01/2021. Code Oelrichs called due to floppy presentation; Cord double clamped and cut by JANETH Fowler, and placed on infant warmer. Spontaneous delivery of placenta complete and intact with Woo side presenting at 0144. Several trailing membranes teased out with ring forceps. Uterus explored and palpates empty. Fundus is firm and midline located 5 below the U. Lochia is scant. Cord blood gasses collected x 2. Cord blood also collected. Placenta to pathology. - Infant A at 1 minute: 2 at 5 minutes: 7 Infant Gender: Male (6'4)
[2021-06-01] MEDS: IBUPROFEN 600 MG TAB PO SCH ×3 (02:37→18:21)
[2021-06-01 16:15] LABS: Hematocrit 28.8 % (30.3-42.9); Hemoglobin 9.6 gm/dl (10.1-14.3)
--- NOTE | 2021-06-01 22:27 | Post Anesthesia Evaluation ---
- Post Anesthesia Evaluation Patient Participated: Yes Airway Patent: Yes Stable Respiratory Function: Yes Nausea/Vomiting: No Temp > 96.8F: Yes Pain Manageable: Yes Adequeate Hydration: Yes Anesthesia Complications: No Block Receding Appropriately: Yes
[2021-06-02] MEDS: IBUPROFEN 600 MG TAB PO SCH ×3 (04:57→20:37)
[2021-06-02] MEDS ORDERED: TETANUS,DIPH,PERTUSS(ACELL) VACCINE 0.5 ML SYRINGE IM ONE (06:00)
--- NOTE | 2021-06-02 11:43 | Progress Note ---
Assessment and Plan A: day 1 S/P . Anemia. P: Supplement with oral iron. Anticipate discharge home tomorrow if patient continues to do well. Subjective - Subjective Date of service: 06/02/21 Principal diagnosis: day 1 S/P Patient reports: appetite normal, voiding normally, pain well controlled, flatus, ambulating normally, no dizzy ambulation, no nauseated [place]: doing well Objective - Vital Signs Latest vital signs: Vital Signs Temp Pulse Resp BP Pulse Ox 06/02/21 08:34 98.4 F 80 18 95/50 97 06/02/21 00:54 98.0 F 89 18 108/51 96 06/01/21 20:17 99.0 F 89 16 114/56 96 06/01/21 16:09 98.0 F 95 H 20 118/58 99 06/01/21 12:17 98.3 F 87 20 107/56 97 Intake and Output 06/01/21 06/02/21 06/02/21 23:59 07:59 15:59 Intake Total 240 120 Balance 240 120 Intake: Oral 240 120 Other: Total, Intake Amount 240 120 # Voids Void 1 1 1 - Exam Cardiovascular: Present: Regular rate Lungs: Present: Clear to auscultation Abdomen: Present: normal appearance, soft, normal bowel sounds. Absent: distention, tenderness, guarding, rigidity Uterus: Present: normal, firm, fundal height below umbilicus. Absent: bogginess, tenderness Extremities: Present: normal. Absent: tenderness, edema - Labs Labs: Abnormal lab results 06/01/21 Range/Units 15:41 Hgb 9.6 L D (10.1-14.3) gm/dl Hct 28.8 L D (30.3-42.9) %
[2021-06-02] MEDS: FERROUS SULFATE 325 MG TAB PO SCH ×2 (14:31→22:45)
[2021-06-03] MEDS: IBUPROFEN 600 MG TAB PO SCH ×2 (05:10→11:06)
--- NOTE | 2021-06-03 07:00 | Progress Note ---
Assessment and Plan A: day 2 S/P . Anemia. Suprapubic pain. P: Urinalysis. Continue iron supplementation. Subjective - Subjective Date of service: 06/03/21 Principal diagnosis: day 2 S/P Interval history: Patient complains of suprapubic pain this morning. Reports small amount of lochia. Denies fever or chills or flank pain. Patient reports: appetite normal, voiding normally, pain well controlled, flatus, ambulating normally, no dizzy ambulation, no other : doing well Objective - Vital Signs Latest vital signs: Vital Signs Temp Pulse Resp BP Pulse Ox 06/03/21 05:10 20 06/02/21 23:34 98.4 F 80 18 106/52 96 06/02/21 20:37 20 06/02/21 17:45 98.4 F 86 18 108/58 98 06/02/21 08:34 98.4 F 80 18 95/50 97 Intake and Output 06/02/21 06/02/21 06/03/21 15:59 23:59 07:59 Intake Total 120 840 360 Balance 120 840 360 Intake: Oral 120 480 360 Intake, Free Water 360 Other: Total, Intake Amount 120 480 360 # Voids Void 1 4 1 - Exam Cardiovascular: Present: Regular rate Lungs: Present: Clear to auscultation Abdomen: Present: normal appearance, soft. Absent: distention, tenderness, guarding, rigidity Uterus: Present: normal, firm, fundal height below umbilicus. Absent: bogginess, tenderness Extremities: Present: edema. Absent: tenderness
[2021-06-03 08:29] LABS: Bilirubin,Urine NEG (Negative); Blood,Urine LG (Negative); Color,Urine Yellow (Yellow); Mucus,Urine FEW /HPF
[2021-06-03 08:30] LABS: RBC,Urine > 182.0 /HPF (0.0-6.0)
[2021-06-03] MEDS: FERROUS SULFATE 325 MG TAB PO SCH (11:06)
[2021-06-03 12:42] VITALS: BP 110/58
--- NOTE | 2021-06-19 09:02 | Discharge Summary ---
Providers - Providers Date of Admission: 05/30/21 01:16 Date of discharge: 06/03/21 Attending physician: BILLIE TUCKER JR, MD Primary care physician: BILLIE TUCKER JR, MD Hospitalization Condition at discharge: Stable Disposition: [id number] TO HOME OR SELFCARE Plan - Provider Discharge Summary Additional instructions: [] Smoking cessation referral if applicable(refer to patient education folder for contact #) [] Refer to [facility]'s [facility] Booklet Call your doctor immediately for: * Fever > 100.5 * Heavy vaginal bleeding ( >1 pad per hour) * Severe persistent headache * Shortness of breath * Reddened, hot, painful area to leg or breast * Drainage or odor from incision. * Keep incision clean and dry at all times and follow doctor's instructions regarding bathing/showering - Follow up plan Follow up: BILLIE TUCKER JR, MD [Primary Care Provider] - 7 Days Forms: [facility] Discharge Summary
== END 2021-06-03 13:30 | disposition home or self-care (01) | DRG 807 ==
LOC: TRG 23:45 → APU 23:58 → TRG 05-30 01:16 → LD 05-30 01:16 → OB 06-01 03:50
PROVIDERS: ADMIT Obstetrics & Gynecology; ATTEND Obstetrics & Gynecology
PROC: 3E0R3BZ Introduction of Anesthetic Agent into Spinal Canal, Percutaneous Approach (ICD-10-PCS; 2021-05-31)
PROC: 00HU33Z Insertion of Infusion Device into Spinal Canal, Percutaneous Approach (ICD-10-PCS; 2021-05-31)
PROC: 10E0XZZ Delivery of Products of Conception, External Approach (ICD-10-PCS; principal; 2021-06-01)
PROC: 3E033VJ Introduction of Other Hormone into Peripheral Vein, Percutaneous Approach (ICD-10-PCS; 2021-06-01)
DX: O42.90 Premature rupture of membranes, unspecified as to length of time between rupture and onset of labor, unspecified weeks of gestation (principal); Z37.0 Single live birth; Z3A.38 38 weeks gestation of pregnancy; Z20.822 Contact with and (suspected) exposure to COVID-19
CPT/HCPCS: 36415; 59025; 59200; 81001; 84112; 85014; 85018; 85027; 86592; 86850; 86900; 86901; 87076; 87086; 87186; 88307; 90715; G0378; J0595; J2590; J7120; U0003